=== PATIENT | female | born 1995 | race Caucasian/White ===

== ENCOUNTER 2025-02-18 15:00 | Inpatient (IN) | payer OTHER, SELFPAY ==
--- NOTE | ~2025-02-18 | XR_ITS ---
CLINICAL HISTORY: pain 4 view, chest and right ribs Comparison: None Findings: No fractures or dislocations. The visualized lungs are normal. Right lower cervical rib. IMPRESSION: No acute rib fractures. Right lower cervical rib. This document has been electronically signed by: Chela Ward MD on 02/19/2025 13:14:50
--- NOTE | ~2025-02-18 | XR_ITS ---
CLINICAL HISTORY: pain 4 view right shoulder Comparison: None Findings: Bones intact. No dislocations. No significant arthritic change. No erosions. No radiopaque foreign body. Right lower cervical rib. IMPRESSION: 1. No acute findings This document has been electronically signed by: Chela Ward MD on 02/19/2025 13:16:22
[2025-02-18 15:06] VITALS: BP 110/60; PULSE 70; O2SAT 98
[2025-02-18 15:07] VITALS: BP 115/73; PULSE 85; RESP 16; TEMP 36.6; O2SAT 100; BMI 25.8
--- NOTE | 2025-02-18 15:29 | ED_ITS ---
HPI - Psych General Chief Complaint: Psychiatric Symptoms Stated Complaint: attempt overdose Time Seen by Provider: 02/18/25 15:07 Source: patient and EMS Mode of arrival: EMS Limitations: no limitations History of Present Illness ED Provider: PATRICIA REID PA-C HPI Narrative: 29 year old female with pmhx significant for borderline personality disorder presents to the ED today via EMS from [facility] for evaluation of suicidal ideation. Endorses attempted OD on 15-20 trazodone pills 2 days ago. Endorses passive SI at present without plan. Patient states she has been non med compliant x3 days. Reports feeling unhinged . Had a falling out with her best friend recently along with relationship issues. Admits to controlled etoh consumption and marijuana use. Denies any other illicit substance use. Denies etoh abuse or etoh withdrawal. At present, endorses upset stomach. Reports 4 loose BMs today. She is unsure if this is attributable to her ingestion or her recent food intake. No other physical concerns. Related Data Home Medications ?Medication ?Instructions ?Recorded ?Confirmed hydroxyzine pamoate 25 mg capsule 25 mg PO TID PRN Anxiety 02/18/25 02/18/25 lamotrigine 100 mg tablet 100 mg PO BEDTIME 02/18/25 02/18/25 paroxetine HCl 25 mg 25 mg PO QAM 02/18/25 02/18/25 tablet,extended release 24 hr trazodone 50 mg tablet 50 - 100 mg PO BEDTIME PRN Insomnia 02/18/25 02/18/25 valacyclovir 1 gram tablet 1,000 mg PO BEDTIME 02/18/25 02/18/25 Allergies Allergy/AdvReac Type Severity Reaction Status Date / Time No Known Allergies Allergy Verified 02/18/25 15:33 Review of Systems 2 Review of Systems: Constitutional: No fever, chills, fatigue, night sweats, weight changes ENT/Mouth: No ear pain, hearing loss, nasal congestion, sinus pain, rhinorrhea, sore throat Eyes: No eye pain, swelling, redness, vision changes, discharge Cardio: No chest pain, palpitations, GARRETT, orthopnea, peripheral edema Pulm: No SOB, cough, sputum, wheezing, dyspnea, hemoptysis GI: No nausea, vomiting, hematemesis, abdominal pain, diarrhea, constipation, hematochezia, melena : No irregular bleeding, dysuria, frequency, urgency, hesitancy, hematuria, flank pain, urinary flow changes, urinary incontinence or retention MSK: No back pain, neck pain, joint pain, myalgias Skin: No lesions, rashes Neuro: No weakness, numbness, paresthesias, LOC, dizziness, headache Psych: No anxiety/panic, depression, HI, AH/VH, +SI All other systems reviewed and are negative. Yes all other systems are reviewed and are negative [facility] Past Medical History Attestation statement: The following information was validated with the patient. Source: old records reviewed and nursing notes reviewed Social History Social History Household Members: None Housing: Apartment Do you presently have visiting nurse or other home services: No Patient Tobacco Use Status: Current everyday Tobacco user Smoked in Last 30 Days: Yes e-Cigarette/Vaping Use: Currently Using Frequency of e-Cigarette/Vaping Use: daily all day Patient Interested in Nicotine Replacement: Yes Patient Given Instructions on How to Stop Smoking: Yes Date Education Initiated: 02/20/25 Use of substances other than those prescribed or required for medical reasons: Yes Substance Use Type: Marijuana Currently Displaying Signs/Symptoms of Drug Intoxication Withdrawal: No Have you been hit, kicked, punched, or otherwise hurt by someone within the past year? If so, by whom?: No Do you feel safe in your current relationship?: No Current Relationship Is there a partner from a previous relationship who is making you feel unsafe now?: No Are you made to feel afraid or neglected: No Spiritual Healthcare Practices: none Muslim Healthcare Practices: none Cultural Healthcare Practices: none Advance Directives: No Advance Directives Information Provided: No Do you have thoughts of harming others: None Do you have a plan to hurt others: No Plan Recently lost weight without trying: No Nutrition Risks: No Nutritional Risk Patient : No : No Poor oral hygiene: No Physical Exam 2 Vital Signs: Vital Signs: Last Vital Signs Temp 98.2 F 02/21/25 08:00 Pulse 66 02/21/25 08:00 Resp 18 02/21/25 08:00 BP 100/56 L 02/21/25 08:00 Pulse Ox 92 02/21/25 08:00 O2 Del Method Room Air 02/21/25 08:00 BMI result Body Mass Index 25.8 Vital signs stable, afebrile General: well appearing, in no acute distress. Skin: Warm, dry, intact. No rashes or lesions. Head: Normocephalic, atraumatic. EENT: Hearing is intact b/l. Conjunctiva clear. PERRLA. EOM intact. Moist mucous membranes.? Cardiac: Chest wall symmetric. RRR Lungs: Normal respiratory effort without accessory muscle use. CTA bilaterally Abdomen: Soft, non-tender, non-distended. No rebound tenderness or guarding. Positive BS x4. Back: No midline spinous or paraspinal tenderness. No step off deformity. Ext: Upper and lower extremities atraumatic, without tenderness, deformity, swelling or erythema Neuro: AOx3. Normal speech. CN 2-12 grossly intact. Ambulating with steady gait. Course Course Course Narrative: 1645 -- CBC without leukocytosis or left shift. Normocytic anemia, no priors to compare to. H&H above transfusion threshold. Chemistry without acute electrolyte abnormality requiring intervention. No RICKY. Normal liver function. Urine showing small blood, small leukocyte esterase, urine RBCs, WBCs, 6-10 squamous epithelial cells and trace urine bacteria. No urinary symptoms. Possible contamination. Will await urine culture for treatment. Urine negative. Urine toxicology positive for cocaine and marijuana, otherwise negative. ethanol, acetaminophen and salicylates undetectable. EKG showing normal sinus rhythm, rate 81 beats per minute, no acute ischemic changes or ST elevations > patient is medically cleared for care team at this time. Placed in physician observation. Reevaluation(s) Reevaluation #1: Time: 07:15 Date: 02/19/25 Provider: Lyudmila Ocampo, DO Patient in physician observation for psychiatric evaluation.? No acute events reported overnight after the events of yesterday. No current complaints. VS stable.? Patient is in bed search status S12. Will continue to monitor. c/o R side pain after restraint yesterday R shoulder and xray ordered of R ribs elbow wrist and hip no deformity or swelling, walking on hip she states this happened during escalation and restraint xrays no trauma Medications Administered Generic Name Dose Route Start Last Admin Trade Name Freq PRN Reason Stop Dose Admin Albuterol Sulfate 2 puff 02/21/25 09:14 02/21/25 11:11 Albuterol Sulfate 90 Mcg 8 Gm Inhaler INHALE 2 puff RQ4H PRN Administration sob Hydroxyzine HCl 25 mg 02/20/25 15:18 02/21/25 11:52 Hydroxyzine Hcl 25 Mg Tablet PO 25 mg Q6H PRN Administration mild anxiety Lamotrigine 100 mg 02/18/25 22:00 02/20/25 22:33 Lamotrigine 100 Mg Tablet PO 100 mg BEDTIME SHU Administration Nicotine Polacrilex 2 mg 02/18/25 20:59 02/20/25 15:24 Nicotine Polacrilex 2 Mg Gum BUCCAL 2 mg QID PRN Administration Nicotine Cravings Paroxetine HCl 20 mg 02/18/25 22:15 02/20/25 22:33 Paroxetine Hcl 20 Mg Tablet PO 20 mg BEDTIME SHU Administration Trazodone HCl 50 - 100 mg 02/18/25 21:58 02/20/25 22:35 Trazodone Hcl 50 Mg Tablet PO 100 mg BEDTIME PRN Administration Insomnia Valacyclovir HCl 1,000 mg 02/18/25 22:00 02/20/25 22:33 Valacyclovir Hcl 1,000 Mg Tablet PO 1,000 mg BEDTIME SHU Administration Discontinued Medications Generic Name Dose Route Start Last Admin Trade Name Freq PRN Reason Stop Dose Admin Benzocaine 1 lozenge 02/20/25 09:58 02/20/25 10:16 Throat Lozenge, Medicated Lozenge MUCOUS MEM 02/20/25 09:59 1 lozenge ONCE ONE Administration Cyclobenzaprine HCl 5 mg 02/19/25 01:19 02/19/25 01:34 Cyclobenzaprine Hcl 5 Mg Tablet PO 02/19/25 01:20 5 mg ONCE ONE Administration Guanfacine HCl 1 mg 02/21/25 14:21 02/21/25 14:59 Guanfacine Hcl Er 1 Mg Tab.Er.24h PO 02/21/25 14:22 1 mg ONCE ONE Administration Haloperidol Lactate 5 mg 02/18/25 19:41 02/18/25 19:42 Haloperidol Lactate 5 Mg/Ml Vial IM 02/18/25 19:42 5 mg ONCE ONE Administration Hydroxyzine HCl 25 mg 02/18/25 18:52 02/18/25 18:57 Hydroxyzine Hcl 25 Mg Tablet PO 02/18/25 18:53 25 mg ONCE ONE Administration Hydroxyzine HCl 25 mg 02/18/25 21:58 02/20/25 22:39 Hydroxyzine Hcl 25 Mg Tablet PO 25 mg TID PRN Administration Anxiety Ibuprofen 600 mg 02/18/25 21:59 02/19/25 00:48 Ibuprofen 600 Mg Tablet PO 02/18/25 22:00 600 mg ONCE ONE Administration Midazolam HCl 2 mg 02/18/25 19:42 02/18/25 19:42 Midazolam Hcl 2 Mg/2 Ml Vial IM 02/18/25 19:43 2 mg ONCE ONE Administration Medical Decision Making Medical Decision Making [facility] Narrative: 29 year old female with pmhx significant for borderline personality disorder presents to the ED today via EMS from [facility] for evaluation of suicidal ideation. vital signs stable. she is nontoxic appearing. Differential diagnosis includes anemia, electrolyte abnormality, mood disorder, anxiety, depression, SI, polysubstance abuse, acute ingestion Presentation not consistent with acute organic causes to include delirium, dementia or drug induced disorders (acute withdrawal; no evidence of toxidrome).? Given the H&P, I suspect this patient is suicidal and will require observation. Will consult care team to evaluate the patient. Will also obtain labs for medical clearance. Plan: labs, EKG, ASA/APAP levels, ETOH level, UDS, care team consultation, reassessment 02/19/25 0120 Alem Shaikh MD I was informed by the patient's nurse that the patient was complaining of left forearm arm and upper back pain. I evaluated the patient, patient has normal flexion and extension, pain to palpation over bicipital area and suprascapular area. At this time, imaging is not indicated Patient was given a dose of p.o. Flexeril Differential Diagnosis Differential Diagnoses: The differential diagnosis associated with the presentation includes as above. Admission/Observation Consideration of admission/observation: Escalation of care including admission/observation considered Lab Data [facility] Lab Attestation statement: I reviewed the patient's lab results. as above. 02/18/25 16:12 02/21/25 08:22 Labs: Lab Results 02/18/25 02/18/25 02/18/25 Range/Units 15:00 16:12 16:19 WBC 8.9 (4.8-10.8) X10*3/uL RBC 3.85 L (4.20-5.50) X10*6/uL Hgb 11.5 L (12.0-16.0) g/dl Hct 33.3 L (37.0-47.0) % MCV 86.5 (80.0-98.0) fL MCH 29.9 (27.0-33.0) pg MCHC 34.5 (31.0-35.0) g/dl RDW 13.2 (11.0-16.0) % Plt Count 198 (160-400) X10*3/uL MPV 13.0 H (9.4-12.3) fL Immature Gran % (Auto) 0.3 (0.0-0.4) % Neut % (Auto) 70.8 (45-73) % Lymph % (Auto) 19.5 L (20-40) % [place] % (Auto) 8.4 (2-11) % Eos % (Auto) 0.4 (0-4) % Baso % (Auto) 0.6 (0-2) % Lymph # (Auto) 1.7 (1.2-4.9) X10*3/uL [place] # (Auto) 0.8 (0.1-1.2) X10*3/uL Eos # (Auto) 0.0 (0.0-0.4) X10*3/uL Baso # (Auto) 0.1 (0.0-0.2) X10*3/uL Abs Immat Gran (auto) 0.03 (0.00-0.03) X10*3/uL Absolute Neuts (auto) 6.3 (2.0-8.3) x10*3/uL Absolute Nucleated RBC 0.000 (0.0-0.012) X10*3/uL Nucleated RBC % (auto) 0.0 (0.0-0.2) /100WBC Sodium 138 (135-145) mmol/L Potassium 3.7 (3.3-5.1) mmol/L Chloride 107 (96-108) mmol/L Carbon Dioxide 24 (22-29) mmol/L Anion Gap 11 L (12-20) BUN 11 (9-16) mg/dL Creatinine 0.61 (0.5-1.4) mg/dL Estim Creat Clear Calc 135.1 Estimated GFR > 60 Random Glucose 115 (60-115) mg/dL Calcium 9.1 (8.4-10.2) mg/dL Magnesium 1.7 (1.6-2.6) mg/dL Total Bilirubin 0.3 (0.0-1.0) mg/dL AST 15 (5-31) U/L ALT 12 (0-31) U/L Alkaline Phosphatase 52 (39-117) U/L Total Protein 6.8 (6.5-8.0) g/dL Albumin 4.0 (3.5-5.0) g/dL Lipase 22 (8-78) U/L Urine Color Yellow Urine Appearance Clear Urine pH 6.5 (5.0-9.0) Ur Specific [place] 1.010 (1.005-1.025) Urine Protein Negative (Neg-Trace) mg/dL Urine Glucose (UA) Negative (Negative) mg/dL Urine Ketones Negative (Negative) mg/dL Urine Blood Small (1+) H (Negative) Urine Nitrite Negative (Negative) Ur Leukocyte Esterase Small (1+) H (Negative) Urine RBC 6-10 H (0-2) /HPF Urine WBC 6-10 H (0-5) /HPF Ur Squamous Epith Cells 6-10 (0-2) /HPF Urine Bacteria Trace (None Seen) Hyaline Casts 0-2 (0-2) /LPF Urine Test NEGATIVE (NEGATIVE) Salicylates < 5.0 L (15-30) mg/dL Urine Opiates Screen Not Detected (Not Detect) Ur Buprenorphine Scrn Not Detected (Not Detect) ng/mL Ur Oxycodone Screen Not Detected (Not Detect) ng/mL Urine Methadone Screen Not Detected (Not Detect) ng/mL Urine Fentanyl Screen Not Detected (Not Detect) Acetaminophen < 3 (<30) mcg/mL Ur Barbiturates Screen Not Detected (Not Detect) Ur Phencyclidine Scrn Not Detected (Not Detect) Ur Amphetamines Screen Not Detected (Not Detect) U Benzodiazepines Scrn Not Detected (Not Detect) Urine Cocaine Screen POSITIVE H (Not Detect) U Marijuana (THC) Screen POSITIVE H (Not Detect) Ethyl Alcohol < 10 mg/dL Independent Interpretation I performed an independent interpretation of an: EKG Interpretation: EKG showing normal sinus rhythm with a rate of 81 beats per minute, no acute ischemic changes or ST elevations Radiology Impression Discussion of test interpretation with radiology: I have reviewed the radiologist's reading. Radiologist Impression: Date of Service: 02/18/25 Procedure(s): ECG 12 lead EKG Accession Number(s): [id number] cc: ~ Test Reason : R/O PROLONGED QT Blood Pressure : */* mmHG Vent. Rate : 81 BPM Atrial Rate : 81 BPM P-R Int : 170 ms QRS Dur : 82 ms QT Int : 356 ms P-R-T Axes : 71 53 18 degrees QTcB Int : 413 ms Normal sinus rhythm Normal ECG No previous ECGs available Referred By: Patricia Reid Electronically Signed By: Independent Historian Clinical information obtained from an independent historian. History obtained from or confirmed by: EMS Social Determinants Patient?s care significantly limited by Social Determinants of Health including: Other Social Determinant of Health Critical Care Time Critical Care Time Critical Care Time: No Discharge Plan Discharge Clinical Impression: Suicidal ideation, Overdose Patient Disposition: Admitted As Inpatient Interventions: Admission Worksheet (ED) Last Done: 02/20/25 17:07 Discharge Date/Time: 02/20/25 17:09
--- NOTE | 2025-02-18 15:37 | PC.NURSE ---
patient a&ox3, ambulatory with steady gait, pt wanting to order food as she states she has an eating disorder which she doesnt divulge what type of eating disorder, pt was also stating she cant have certain lactose- yogurt, milk. she requested to look up phone numbers to have pre-packaged food brought to her. provider came to mary pt, awaiting orders, plan of care ongoing
--- NOTE | 2025-02-18 15:40 | ECG_ITS ---
Test Reason : R/O PROLONGED QT Blood Pressure : */* mmHG Vent. Rate : 81 BPM Atrial Rate : 81 BPM P-R Int : 170 ms QRS Dur : 82 ms QT Int : 356 ms P-R-T Axes : 71 53 18 degrees QTcB Int : 413 ms Normal sinus rhythm Normal ECG No previous ECGs available Referred By: Patricia Reid Electronically Signed By: ANCA TRAVIS MD
[2025-02-18 16:22] LABS: MANUAL DIFF FLAG NO
[2025-02-18 16:23] LABS: Basophils Absolute Auto 0.1 X10*3/uL (0.0-0.2); Basophils Percent Auto 0.6 % (0-2); Eosinophils Percent Auto 0.4 % (0-4); Hematocrit 33.3 % (37.0-47.0); Hemoglobin 11.5 g/dl (12.0-16.0); Imm Gran Abs Auto 0.03 X10*3/uL (0.00-0.03); Imm Gran Pct Auto 0.3 % (0.0-0.4); Lymphocytes Absolute Auto 1.7 X10*3/uL (1.2-4.9); Lymphocytes Percent Auto 19.5 % (20-40); Mean Corpuscular HGB Conc 34.5 g/dl (31.0-35.0); Mean Corpuscular Hemoglobin 29.9 pg (27.0-33.0); Mean Corpuscular Volume 86.5 fL (80.0-98.0); Monocytes Absolute Auto 0.8 X10*3/uL (0.1-1.2); Monocytes Percent Auto 8.4 % (2-11); Neutrophils Absolute Auto 6.3 x10*3/uL (2.0-8.3); Neutrophils Percent Auto 70.8 % (45-73); Platelet Count 198 X10*3/uL (160-400); Red Blood Count 3.85 X10*6/uL (4.20-5.50); Red Cell Distribution Width 13.2 % (11.0-16.0); White Blood Count 8.9 X10*3/uL (4.8-10.8)
[2025-02-18 16:25] LABS: Appearance Urine Clear; Color Urine Yellow; Glucose Urine UA Negative (Negative); Leukocyte Esterase Urine Small (1+) (Negative); Nitrite Urine Negative (Negative); PH 6.5 (5.0-9.0); UMIC TRIGGER UACC YES; Urine Blood Small (1+) (Negative); Urine Ketones Negative (Negative); Urine Protein Negative (Neg-Trace)
[2025-02-18 16:25] LABS: UPreg QC Valid YES; Urine Pregnancy NEGATIVE (NEGATIVE)
[2025-02-18 16:27] LABS: Bacteria Urine Trace (None Seen); Hyaline Casts Urine 0-2 /LPF (0-2); UACC Culture Trigger YES
[2025-02-18 16:34] LABS: Amphetamine Screen Urine Not Detected (Not Detect); Barbiturates, Urine Not Detected (Not Detect); Benzodiazepines Screen Urine Not Detected (Not Detect); Buprenorphine Scr Not Detected (Not Detect); Cannabinoid Screen Urine POSITIVE (Not Detect); Cocaine Screen Urine POSITIVE (Not Detect); Fentanyl, urine Not Detected (Not Detect); Methadone Screen, Urine Not Detected (Not Detect); Opiate Screen Urine Not Detected (Not Detect); Oxycodone Screen Urine Not Detected (Not Detect); Phencyclidine Screen Urine Not Detected (Not Detect)
[2025-02-18 16:37] LABS: Acetaminophen LAB < 3 mcg/mL (<30); Salicylate < 5.0 mg/dL (15-30)
[2025-02-18 16:39] LABS: Alanine Aminotransferase 12 U/L (0-31); Alkaline Phosphatase 52 U/L (39-117); Anion Gap 11 (12-20); Aspartate Amino Transferase 15 U/L (5-31); Bilirubin Total 0.3 mg/dL (0.0-1.0); Blood Urea Nitrogen 11 mg/dL (9-16); Calcium 9.1 mg/dL (8.4-10.2); Carbon Dioxide 24 mmol/L (22-29); Chloride 107 mmol/L (96-108); Creatinine Clr Calc Pharmacy 135.1; Estimated Glomerular Filt Rate > 60; Ethanol < 10 mg/dL; Glucose Random 115 mg/dL (60-115); Lipase 22 U/L (8-78); Magnesium 1.7 mg/dL (1.6-2.6); Potassium 3.7 mmol/L (3.3-5.1); Sodium 138 mmol/L (135-145); Total Protein 6.8 g/dL (6.5-8.0)
[2025-02-18] MEDS: hydrOXYzine HCL 25 MG TABLET PO (18:57)
[2025-02-18] MEDS: Midazolam HCl 2 MG/2 ML VIAL IM (19:42)
[2025-02-18] MEDS: Haloperidol Lactate 5 MG/ML VIAL IM (19:42)
--- NOTE | 2025-02-18 20:15 | PC.NURSE ---
late en andre, on arrival to unit t/ w spoke to client seated in rear [facility] area, and reviewed her medications w t/w. about 20 minutes later client was informed she would be stayoing and client felt tricked, began yelling which was maybe 3-4 minutes, t/w asked provider for medications for client, with the hopes that client could sle fregualte in some way
--- NOTE | 2025-02-18 20:42 | MHC.CARE ---
Pt was initially assessed by [facility] crisis earlier today who deemed Pt was appropriate for IPLOC. Per CHD and prior to CHD assessment, Pt's ex boyfriend's father initiated a well-being check with Meir JAUREGUI at ex-boyfriend's home as Pt had reported an intentional overdose on prescribed medications 2 days prior. Upon additional collateral, Pt's childhood friend (Johanna) went to meet with Pt at at ex-boyfriend's house and encouraged her to present to [facility] crisis. Johanna expresses significant concern over Pt's ability to maintain her safety in the community at this time, as she is showing a pattern of behavior that she engages in prior to harming herself. Johanna reports that Pt has been engaging in SIB via cutting and posting videos on [employer] saying that she wants to kill herself. Pt was reseen by the CARE Team and continues to be IPLOC. On a section 12A for safety.
[2025-02-18] MEDS: Nicotine Polacrilex 2 MG GUM BUCCAL (21:10)
[2025-02-19] MEDS: Ibuprofen 600 MG TABLET PO (00:48)
[2025-02-19] MEDS: PARoxetine HCL 20 MG TABLET PO ×2 (00:48→20:56)
[2025-02-19] MEDS: lamoTRIgine 100 MG TABLET PO ×2 (00:48→20:56)
[2025-02-19] MEDS: valACYclovir HCL 1,000 MG TABLET 1000 MG PO ×2 (00:48→20:56)
--- NOTE | 2025-02-19 00:55 | PC.NURSE ---
patient had fallen asleep after ims given earlier this evening and analgesic just delivered now, patietns discomfort reported to provider
[2025-02-19 00:59] VITALS: BP 116/74; PULSE 84; RESP 16; TEMP 36.8; O2SAT 100
[2025-02-19] MEDS: Cyclobenzaprine HCl 5 MG TABLET PO (01:34)
[2025-02-19] MEDS: hydrOXYzine HCL 25 MG TABLET PO ×3 (01:37→20:56)
[2025-02-19] MEDS: traZODone HCL 50 MG TABLET PO ×2 (01:37→20:56)
--- NOTE | 2025-02-19 07:59 | PC.NURSE ---
Assumed care of patient at 0645, patient appears to be in no apparent distress this am, appears to be sleeping, respirations even and unlabored. Continue plan of care for IPLOC
[2025-02-19 12:00] VITALS: RESP 16
--- NOTE | 2025-02-19 12:13 | PC.NURSE ---
Pt speaking with CARE team clinician Zeina, pt reporting that she wants to go home, stating that she will not be kept on a section 12 . Pt very upset, unable to hear out clinician on reasoning why patient is an inpatient bedsearch. Pt now on phone speaking with friend
--- NOTE | 2025-02-19 13:11 | MHC.CARE ---
Pt asked to speak to a member of the CARE team regarding her disposition. T/W met with Pt in her room and she requested to discharge. T/W explained to Pt that she is on a Section 12a secondary to her intentional overdose of prescribed medications in a suicide attempt as well as texts sent to her ex boyfriend stating that she was going to kill herself. Pt was irritable and argumentative throughout the interaction attempting to bargain her way out of an inpatient psychiatric admission. Pt stated I can't stay here I have an eating disorder. I don't like hospital food. Pt also C/O right side pain secondary to the physical restraint she was placed in yesterday for attempting to elope from the BH pod and fighting with security. T/W stated to Pt that dietary could be contacted to accommodate her nutrition concerns and T/W would inform the ED provider that Pt is requesting to be assessed medically for her pain. Pt was tearful and said. I took 15 Trazadone and 5 Hydroxyzine. I've done it before in a very dismissive and passive way as she does not appear to have insight into the severity of her attempt and the consequences of unsafe decision making. Pt was informed she would remain on a Section 12a as an inpatient psychiatric bed search and would admit to a psychiatric unit for stabilization. Pt's friend Johanna called to ask if Pt's phone privileges could be revoked as she is calling me non stop saying she is going to kill me. T/W informed Johanna it is a human rights violation to stop Pt from using the phone and perhaps she could block the number and not answer the calls. Johanna continued to reiterate the unsafe behaviors of Pt such as overdosing in a suicide attempt numerous times, and frequent cocaine use. She stated Pt does not have an eating disorder and she just doesn't like hospital food.
[2025-02-19 14:52] VITALS: BP 97/60; PULSE 93; RESP 14; TEMP 36.8; O2SAT 98
--- NOTE | 2025-02-19 15:55 | PC.NURSE ---
patient resting in bed, respirations even and unlabored, no apparent distress noted. Pt is calm and cooperative, reports she feels like she has been misunderstood but understands why she is here at this time
[2025-02-19] MEDS: Nicotine Polacrilex 2 MG GUM BUCCAL (18:41)
--- NOTE | 2025-02-20 00:59 | PC.NURSE ---
patient expressed continuing displeasure w plan of inpatient admit, able to let wanrts and needs be known. appears in no distress, did request HS prn medications
[2025-02-20 06:06] VITALS: RESP 16
[2025-02-20 09:07] VITALS: BP 110/62; PULSE 82; RESP 16; TEMP 36.8; O2SAT 99
[2025-02-20] MEDS: Nicotine Polacrilex 2 MG GUM BUCCAL ×2 (09:44→15:24)
[2025-02-20] MEDS: Throat Lozenge, Medicated LOZENGE 1 LOZENGE MUCOUS MEM (10:16)
--- NOTE | 2025-02-20 11:43 | PHA.MEDREC ---
Addendum entered by Cedrick Clemente [facility] 02/20/25 12:27: MED REC CHECKED BY [facility] Original Note: Pharmacy Consult ? Medication Reconciliation Pharmacy has reviewed the medication reconciliation done by nursing. Claims match med rec.
[2025-02-20 14:16] VITALS: BP 100/57; PULSE 84; RESP 14; TEMP 37.2; O2SAT 99
[2025-02-20] MEDS: hydrOXYzine HCL 25 MG TABLET PO ×2 (16:39→22:39)
--- NOTE | 2025-02-20 16:46 | MHC.CARE ---
Per Rylie Dubois of [facility], no authorization or UR needed. Case ID [id number]
[2025-02-20 17:08] VITALS: BP 115/69; PULSE 83; RESP 16; TEMP 36.6; O2SAT 97
[2025-02-20 17:10] VITALS: BMI 25.7
--- NOTE | 2025-02-20 18:25 | PC.ADMIT ---
Addendum entered by Jumana Henriquez RN 02/20/25 18:59: When Ruth found out she was being sectioned, she became agitated, attempted to elope from the pod. She was chemically and mechanically restrained. Afterward she complained of right shoulder pain, imaging was done which was negative. Original Note: Ruth arrived from [facility] ED pod at 1653. She is alert and oriented x4. Ruth was cooperative with skin/safety check and skin check is unremarkable. She declined signing in so she remains on a 12b. Ruth appears stated age and denies any health problems. She reports that she came to the ED because crisis told me if I came to the psych pod in the ED it would be the quickest way to get into respite and [facility]. Per Ruth, her mom prefills her meds for the week and last week she stopped taking her lamictal, for about 5 days . I started acting impulsively, not myself, I cheated on my boyfriend and now he wants nothing to do with me. So I wanted to numb out and took a bunch of trazadone and a few hydroxyzines. I didn't want to kill myself, if I had I could have easily done it, I had all the meds already. Then 2 days later, I went out drinking with my friend and ended up texting my ex boyfriend, he wasn't home, that I had been drinking and wanted to talk with him so I was just going to stay at his place, I had a brumfield. I woke up to police standing around me doing a 'wellness check'. I don't know why. That wellness check would have made more sense 2 days before! But it was then and thats how I ended up in the ED. I was NOT supposed to go inpatient . This is her first inpatient stay. She has been at [facility], has a therapist, med provider and PCP. She vapes nicotine daily, uses marijuana for sleep my psychiatrist knows . She also was tox pos for cocaine, which she reported she uses occasionally. She works as an RN at [employer]. She historically has diagnosis' of MDD, anxiety, and BPD. Ruth denies urges to harm self or others, any visual or perceptual disturbances. She is currently on 15 minute safety checks.
[2025-02-20] MEDS: PARoxetine HCL 20 MG TABLET PO (22:33)
[2025-02-20] MEDS: lamoTRIgine 100 MG TABLET PO (22:33)
[2025-02-20] MEDS: valACYclovir HCL 1,000 MG TABLET 1000 MG PO (22:33)
[2025-02-20] MEDS: traZODone HCL 50 MG TABLET PO (22:35)
[2025-02-21 08:00] VITALS: BP 100/56; PULSE 66; RESP 18; TEMP 36.8; O2SAT 92
[2025-02-21 09:34] LABS: Estimated Average Glucose 94 mg/dL; Hemoglobin A1C 100.4861 umol/L; Hemoglobin A1c % 4.9 % (<6.0); Total Hemoglobin (HGBA1C) 3295.1578 umol/L
[2025-02-21 09:42] LABS: Alanine Aminotransferase 11 U/L (0-31); Albumin Level 4.2 g/dL (3.5-5.0); Alkaline Phosphatase 55 U/L (39-117); Anion Gap 10 (12-20); Aspartate Amino Transferase 16 U/L (5-31); Bilirubin Total 0.3 mg/dL (0.0-1.0); Blood Urea Nitrogen 11 mg/dL (9-16); Calcium 9.2 mg/dL (8.4-10.2); Carbon Dioxide 26 mmol/L (22-29); Chloride 107 mmol/L (96-108); Cholesterol 175 mg/dL (<200); Creatinine Clr Calc Pharmacy 114.2; Estimated Glomerular Filt Rate > 60; Glucose Random 113 mg/dL (60-115); HDL Cholesterol 53 mg/dL (>40); LDL Cholesterol Calculated 103 mg/dL (<100); Potassium 3.5 mmol/L (3.3-5.1); Sodium 139 mmol/L (135-145); Total Protein 7.4 g/dL (6.5-8.0); Triglycerides 98 mg/dL (<150)
[2025-02-21 10:01] LABS: TSH reflex Free T4 2.23 uIU/mL (0.32-4.0)
[2025-02-21] MEDS: Albuterol Sulfate 90 MCG 8 GM INHALER 2 PUFF INHALE (11:11)
[2025-02-21] MEDS: hydrOXYzine HCL 25 MG TABLET PO ×2 (11:52→21:02)
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
[2025-02-21] MEDS: guanFACINE HCl ER 1 MG TAB.ER.24H PO (14:59)
[2025-02-21 15:20] LABS: Appearance Urine Clear; Color Urine Yellow; Glucose Urine UA Negative (Negative); Leukocyte Esterase Urine Trace (Negative); Nitrite Urine Negative (Negative); Specific Gravity - Urine 1.015 (1.005-1.025); UMIC TRIGGER UACC YES; Urine Blood Moderate (2+) (Negative); Urine Ketones Negative (Negative); Urine Protein Negative (Neg-Trace)
[2025-02-21 15:38] LABS: Bacteria Urine None Seen (None Seen); Hyaline Casts Urine 0-2 /LPF (0-2); Squamous Epithelial Cell Urine 0-2 /HPF (0-2); WBC Urine 0-5 /HPF (0-5)
[2025-02-21] MEDS: Nicotine Polacrilex 2 MG GUM BUCCAL (19:16)
[2025-02-21 19:49] VITALS: BP 121/68; PULSE 96; RESP 16; TEMP 36.8; O2SAT 100
[2025-02-21] MEDS: PARoxetine HCL 20 MG TABLET PO (21:01)
[2025-02-21] MEDS: Lithium Carbonate ER 300 MG TABLET.ER PO (21:02)
[2025-02-21] MEDS: valACYclovir HCL 1,000 MG TABLET 1000 MG PO (21:02)
[2025-02-21] MEDS: lamoTRIgine 100 MG TABLET PO (21:02)
[2025-02-21] MEDS: traZODone HCL 50 MG TABLET PO (21:02)
[2025-02-22] MEDS: guanFACINE HCl ER 1 MG TAB.ER.24H PO (08:02)
[2025-02-22] MEDS: Albuterol Sulfate 90 MCG 8 GM INHALER 2 PUFF INHALE (08:02)
[2025-02-22 08:18] VITALS: BP 107/57; PULSE 82; RESP 18; TEMP 36.8; O2SAT 96
[2025-02-22] MEDS: Nicotine Polacrilex 2 MG GUM 4 MG BUCCAL (15:01)
--- NOTE | 2025-02-22 17:45 | HO.PSYCHPN ---
Subjective Subjective Date of Service: 02/22/25 Reason For Visit: decompensation S/I Interim History: Met with patient; discussed with team remains stable, good mood; feels good about dc and going to outpt appointments; in good behavioral/impulse control. And feels that lithium will be helpful and is glad to be on it. Discussed behaviors leading up to this admission and she is feels that she has learned a lot from this event. Patient feels safe, no SI at all. Her plan is to return to live with her mother for awhile, just to for support and also to have her mother returned to dispensing her medications. Mental Status Exam Mental Status Exam Narrative: Pt is alert and oriented; behavior is cooperative, friendly and calm; patient is not in distress; dressed in casual attire with groomed hair and adequate hygiene; mood is described as good and affect congruent; eye contact appropriate; Speech is normal rate, volume and prosody and not pressured; no psychomotor agitation/retardation present; thought process is organized and goal directed; Thought content is on tx; otherwise pertinent to relevant topics and without any delusional content, paranoid ideations or grandiosity; denies any SI/HI. Denies AVH and there is no evidence of perceptual disturbance. Patients insight and judgment are intact. Diagnostics Vital Signs (24Hr): Vital Signs - 24 hr 02/21/25 19:49 02/22/25 08:18 Temperature 98.2 F 98.2 F Pulse Rate 96 82 Respiratory Rate 16 18 Blood Pressure 121/68 107/57 L Pulse Oximetry 100 96 Oxygen Delivery Method Room Air Room Air BMI result Body Mass Index 25.7 Labs 02/18/25 16:12 02/23/25 07:58 Labs: Laboratory Results - last 48 hr 02/21/25 02/21/25 08:22 15:07 Sodium 139 Potassium 3.5 Chloride 107 Carbon Dioxide 26 Anion Gap 10 L BUN 11 Creatinine 0.72 Estim Creat Clear Calc 114.2 Estimated GFR > 60 Random Glucose 113 Estimat Average Glucose 94 Hemoglobin A1c % 4.9 Calcium 9.2 Total Bilirubin 0.3 AST 16 ALT 11 Alkaline Phosphatase 55 Total Protein 7.4 Albumin 4.2 Triglycerides 98 Cholesterol 175 LDL Cholesterol, Calc 103 H HDL Cholesterol 53 TSH 2.23 Urine Color Yellow Urine Appearance Clear Urine pH 6.0 Ur Specific [place] 1.015 Urine Protein Negative Urine Glucose (UA) Negative Urine Ketones Negative Urine Blood Moderate (2+) H Urine Nitrite Negative Ur Leukocyte Esterase Trace H Urine RBC 3-5 H Urine WBC 0-5 Ur Squamous Epith Cells 0-2 Urine Bacteria None Seen Hyaline Casts 0-2 Medications Medications Current Medications Acetaminophen (Acetaminophen 325 Mg Tablet) 650 mg PO Q6H PRN PRN Reason: Headache/Pain, Scale 1-10 Al Hydroxide/Mg Hydroxide (Magnesium Hydrox/Alum Hydrox 30 Ml Oral.Susp) 30 ml PO Q6H PRN PRN Reason: Heartburn/Nausea Albuterol Sulfate (Albuterol Sulfate 90 Mcg 8 Gm Inhaler) 2 puff INHALE RQ4H PRN PRN Reason: sob Last Admin: 02/22/25 08:02 Dose: 2 puff Guanfacine HCl (Guanfacine Hcl Er 1 Mg Tab.Er.24h) 1 mg PO DAILY [facility] Last Admin: 02/22/25 08:02 Dose: 1 mg Hydroxyzine HCl (Hydroxyzine Hcl 25 Mg Tablet) 25 mg PO Q6H PRN PRN Reason: mild anxiety Last Admin: 02/21/25 21:02 Dose: 25 mg Lamotrigine (Lamotrigine 100 Mg Tablet) 100 mg PO BEDTIME SHU Last Admin: 02/21/25 21:02 Dose: 100 mg [place] Carbonate ([place] Carbonate Er 300 Mg Tablet.Er) 300 mg PO BEDTIME SHU Last Admin: 02/21/25 21:02 Dose: 300 mg Magnesium Hydroxide (Milk Of Magnesia 30 Ml Oral.Susp) 30 ml PO DAILY PRN PRN Reason: Constipation Nicotine (Nicotine 21 Mg Patch.Td24) 21 mg TRANSDERMA DAILY PRN PRN Reason: smoking cessation Nicotine Polacrilex (Nicotine Polacrilex 2 Mg Gum) 2 mg BUCCAL QID PRN PRN Reason: Nicotine Cravings Last Admin: 02/21/25 19:16 Dose: 2 mg Nicotine Polacrilex (Nicotine Polacrilex 2 Mg Gum) 4 mg BUCCAL Q2H PRN PRN Reason: Nicotine Cravings Last Admin: 02/22/25 15:01 Dose: 4 mg Olanzapine (Olanzapine 5 Mg Tablet) 5 mg PO TID PRN PRN Reason: agitation Paroxetine HCl (Paroxetine Hcl 20 Mg Tablet) 20 mg PO BEDTIME SHU Last Admin: 02/21/25 21:01 Dose: 20 mg Trazodone HCl (Trazodone Hcl 50 Mg Tablet) 50 - 100 mg PO BEDTIME PRN PRN Reason: Insomnia Last Admin: 02/21/25 21:02 Dose: 100 mg Trazodone HCl (Trazodone Hcl 50 Mg Tablet) 50 mg PO BEDTIME MRX1 PRN PRN Reason: Insomnia Valacyclovir HCl (Valacyclovir Hcl 1,000 Mg Tablet) 1,000 mg PO BEDTIME SHU Last Admin: 02/21/25 21:02 Dose: 1,000 mg Allergies Allergies Allergy/AdvReac Type Severity Reaction Status Date / Time No Known Allergies Allergy Verified 02/18/25 15:33 Assessment & Plan Assessment & Plan (1) Bipolar disorder: Status: Acute Code(s): F31.9 - Bipolar disorder, unspecified (2) Borderline personality disorder: Status: Acute Code(s): F60.3 - Borderline personality disorder (3) PTSD (post-traumatic stress disorder): Status: Acute Code(s): F43.10 - Post-traumatic stress disorder, unspecified 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 Patient reports that since this past September, patient has had her mother Dol out her medications since she is forgetful; because of this she has remained consistent with medications and felt overall happy, started working a job... This December she started taking charge of her own medications however she fell into old habits and would intermittently forget to take meds.. Patient says about last week, I started to spiral, not make best decisions... She thinks perhaps she was having a manic episode during which time she cheated on boyfriend; she told him and he broke up with her, moving her things out of his apartment. This triggered patient's depression, anxiety and self-deprecating thoughts and crying spells. Patient kept texting him but he was not responding. She says that in effort to get a response, she started sending texts about ending her life, trying to get him to react; patient texted things like i dont want to be here anymore... And texted him that she was off her medications. Patient denies that she was suicidal at all and had no thoughts about actually hurting herself but was just texting these things to show him I am not okay with how things ended... That I was heart broken ... Patient did however decided to take 5-10 trazodones and 5 hydrozyzines which she reports was in effort to sleep; before she did so she called her mom that she was going to do this, saying I took a few trazodone...i'm hurting...i just want to sleep... She found her mom's response less than comforting, hung up and took the pills. She said her mom got there very quickly and made patient vomit. Patient acknowledges in hindsight that she said these things also to get her mom to react and come over to her house but again that this was in no way a suicide attempt. Patient reports she was feeling good the next day, woke up fine and went out with a friend and had a few drinks, did 1 line of coke....and then drove to ex-boyfriends house, texting him that she will crash at his house... He did not answer, was not home so she used her brumfield and went into the house and slept there. Patient says the next thing she knows the police arrived to do a wellness check. Her friend was notified who was also there convince patient to go get assessed. Patient said that at this point, her dysregulated mood had fully resolved and she was feeling much better with plans for the next several days, to go shopping, to get her nails done etc.. However she consented to go to crisis; she thought coming to the ED was part of getting herself into respite where she had been in the past and was very surprised and upset to find out she was getting admitted. Patient tried to elope but was stopped and medicated. Patient denies AVH; patient endorses history of manic type behaviors which include rapid speech, hyperactivity, increased libido, using drugs and alcohol when normally she would not, less need for sleep, racing thoughts and excessive spending money; these episodes last about 3 days. Hospital course/Formulation/clinical reasoning: Patient meets criteria for bipolar disorder; certainly ADHD, borderline personality disorder, PTSD and substance abuse have overlapping symptoms. Patient denies any SI at all. She says she is feeling better and knows that her behaviors were inappropriate. She reports a history of intermittently stopping Lamictal but has never gotten a rash; content writer reviewed risks/side effects of Lamictal including periodically discontinuing use which patient understands and wants to continue saying it has been very helpful; going forward she is going to have her mother restart Doling out the medications. Discussed medication management and patient agrees to lithium to address intermittent depressive episodes and prevent manic episodes. / remains stable, good mood; feels good about dc and going to outpt appointments; in good behavioral/impulse control. Discussed Intuniv for ADHD symptoms and patient wanted to try; patient found it helpful and wants to continue with. And feels that lithium will be helpful and is glad to be on it. Discussed behaviors leading up to this admission and she is feels that she has learned a lot from this event. Patient feels safe, no SI at all. Her plan is to return to live with her mother for awhile, just to for support and also to have her mother returned to dispensing her medications. Impression: Patient has returned to baseline. She remains in good behavioral and impulse control and feels safe and back to her regular self. She is future oriented, looking forward to getting back to work and continuing treatment as an outpatient. She remains without any SI. Patient will have her mother staying with her for awhile as a supportive measure. Patient is on a 12 B which is coming due. She is not in imminent risk for harm to self or others and appropriate to return to the community for treatment. Her request for discharge honored. Plan: Twelve B Q 15 minute checks Start lithium 300 mg q.h.s. Continue Lamictal 100 mg; started in the ED; patient has history of starting and stopping without negative effect Start Intuniv; content writer discussed risks/side effects and she agrees that this could help with ADHD Regarding [place], Risks, side-effects and benefits reviewed with pt, including, but not limited to, damage to kidneys and thyroid; pt was educated to stay hydrated, to watch for symptoms of lithium toxicity (also discussed, including but not limited to nausea, tremor, confusion) and the need to stay away from OTC NSAIDs (specifics reviewed) aside from Tylenol. Patient educated on: diagnosis, medication risk/benefits and therapeutic strategies Informed Consent: understands Reason for continued inpatient stay Substantial Risk for: stable for discharge Time Spent With Patient Time: Total time managing care of this patient today ____ minutes.
[2025-02-22 20:00] VITALS: BP 99/58; PULSE 82; RESP 16; TEMP 37.1; O2SAT 98
[2025-02-22] MEDS: Lithium Carbonate ER 300 MG TABLET.ER PO (20:51)
[2025-02-22] MEDS: valACYclovir HCL 1,000 MG TABLET 1000 MG PO (20:51)
[2025-02-22] MEDS: PARoxetine HCL 20 MG TABLET PO (20:51)
[2025-02-22] MEDS: traZODone HCL 50 MG TABLET PO (20:51)
[2025-02-22] MEDS: hydrOXYzine HCL 25 MG TABLET PO (20:51)
[2025-02-22] MEDS: lamoTRIgine 100 MG TABLET PO (20:51)
[2025-02-23 08:00] VITALS: BP 107/64; PULSE 89; RESP 16; TEMP 37.1; O2SAT 98
[2025-02-23 08:42] LABS: Lithium 0.23 mmol/L (0.60-1.20)
[2025-02-23 08:47] LABS: Anion Gap 9 (12-20); Blood Urea Nitrogen 10 mg/dL (9-16); Calcium 9.8 mg/dL (8.4-10.2); Carbon Dioxide 27 mmol/L (22-29); Chloride 105 mmol/L (96-108); Creatinine Clr Calc Pharmacy 115.8; Estimated Glomerular Filt Rate > 60; Glucose Random 81 mg/dL (60-115); Potassium 3.9 mmol/L (3.3-5.1); Sodium 137 mmol/L (135-145)
[2025-02-23] MEDS: Nicotine Polacrilex 2 MG GUM BUCCAL (08:59)
[2025-02-23] MEDS: guanFACINE HCl ER 1 MG TAB.ER.24H PO (08:59)
[2025-02-23 09:03] LABS: TSH reflex Free T4 1.93 uIU/mL (0.32-4.0)
--- NOTE | 2025-02-23 10:10 | PM.PSYDC ---
DS: Providers Provider Date of Service: 02/23/25 Date of admission: 02/20/25 15:18 Date of discharge: 02/23/25 Primary care physician: Lesly Lynch NP Attending physician on admission: Jean Bonner Attending physician on discharge: Jean Bonner DS: Diagnosis Discharge Diagnosis (1) Borderline personality disorder: Status: Acute (2) Bipolar disorder: Status: Acute (3) PTSD (post-traumatic stress disorder): Status: Acute DS: Medications Discharge Medications Home Medications: Home Medications ?Medication ?Instructions ?Recorded ?Confirmed hydroxyzine pamoate 25 mg capsule 25 mg PO TID PRN Anxiety 02/18/25 02/18/25 lamotrigine 100 mg tablet 100 mg PO BEDTIME 02/18/25 02/18/25 paroxetine HCl 25 mg 25 mg PO QAM 02/18/25 02/18/25 tablet,extended release 24 hr trazodone 50 mg tablet 50 - 100 mg PO BEDTIME PRN Insomnia 02/18/25 02/18/25 valacyclovir 1 gram tablet 1,000 mg PO BEDTIME 02/18/25 02/18/25 Previous Rx's ?Medication ?Instructions ?Recorded albuterol sulfate 90 mcg/actuation 2 puff inhalation RQ4H PRN sob 30 02/23/25 aerosol inhaler (Ventolin HFA) days #6.7 grams guanfacine 1 mg tablet,extended 1 mg PO DAILY 30 days #30 tabs 02/23/25 release 24 hr lithium carbonate 300 mg 300 mg PO BEDTIME 30 days #30 tabs 02/23/25 tablet,extended release nicotine (polacrilex) 2 mg gum 2 mg buccal Q2H PRN Nicotine 02/23/25 Cravings 30 days #100 ea Mental Status Exam Mental Status Exam Narrative: Pt is alert and oriented; behavior is cooperative, friendly and calm; patient is not in distress; dressed in casual attire with groomed hair and adequate hygiene; mood is described as good and affect congruent; eye contact appropriate; Speech is normal rate, volume and prosody and not pressured; no psychomotor agitation/retardation present; thought process is organized and goal directed; Thought content is on tx; otherwise pertinent to relevant topics and without any delusional content, paranoid ideations or grandiosity; denies any SI/HI. Denies AVH and there is no evidence of perceptual disturbance. Patients insight and judgment are intact. Data Data Completed and Pending Completed studies during hospitalization [Text1]: 02/18/25 02/18/25 02/18/25 15:00 16:12 16:19 WBC 8.9 RBC 3.85 L Hgb 11.5 L Hct 33.3 L MCV 86.5 MCH 29.9 MCHC 34.5 RDW 13.2 Plt Count 198 MPV 13.0 H Immature Gran % (Auto) 0.3 Neut % (Auto) 70.8 Lymph % (Auto) 19.5 L [place] % (Auto) 8.4 Eos % (Auto) 0.4 Baso % (Auto) 0.6 Lymph # (Auto) 1.7 [place] # (Auto) 0.8 Eos # (Auto) 0.0 Baso # (Auto) 0.1 Abs Immat Gran (auto) 0.03 Absolute Neuts (auto) 6.3 Absolute Nucleated RBC 0.000 Nucleated RBC % (auto) 0.0 Sodium 138 Potassium 3.7 Chloride 107 Carbon Dioxide 24 Anion Gap 11 L BUN 11 Creatinine 0.61 Estim Creat Clear Calc 135.1 Estimated GFR > 60 Random Glucose 115 Estimat Average Glucose Hemoglobin A1c % Calcium 9.1 Magnesium 1.7 Total Bilirubin 0.3 AST 15 ALT 12 Alkaline Phosphatase 52 Total Protein 6.8 Albumin 4.0 Triglycerides Cholesterol LDL Cholesterol, Calc HDL Cholesterol Lipase 22 TSH Urine Color Yellow Urine Appearance Clear Urine pH 6.5 Ur Specific [place] 1.010 Urine Protein Negative Urine Glucose (UA) Negative Urine Ketones Negative Urine Blood Small (1+) H Urine Nitrite Negative Ur Leukocyte Esterase Small (1+) H Urine RBC 6-10 H Urine WBC 6-10 H Ur Squamous Epith Cells 6-10 Urine Bacteria Trace Hyaline Casts 0-2 Urine Test NEGATIVE Salicylates < 5.0 L Urine Opiates Screen Not Detected Ur Buprenorphine Scrn Not Detected Ur Oxycodone Screen Not Detected Urine Methadone Screen Not Detected Urine Fentanyl Screen Not Detected Acetaminophen < 3 Ur Barbiturates Screen Not Detected Ur Phencyclidine Scrn Not Detected Ur Amphetamines Screen Not Detected U Benzodiazepines Scrn Not Detected [place] Urine Cocaine Screen POSITIVE H U Marijuana (THC) Screen POSITIVE H Ethyl Alcohol < 10 02/21/25 02/21/25 02/23/25 08:22 15:07 07:58 WBC RBC Hgb Hct MCV MCH MCHC RDW Plt Count MPV Immature Gran % (Auto) Neut % (Auto) Lymph % (Auto) [place] % (Auto) Eos % (Auto) Baso % (Auto) Lymph # (Auto) [place] # (Auto) Eos # (Auto) Baso # (Auto) Abs Immat Gran (auto) Absolute Neuts (auto) Absolute Nucleated RBC Nucleated RBC % (auto) Sodium 139 137 Potassium 3.5 3.9 Chloride 107 105 Carbon Dioxide 26 27 Anion Gap 10 L 9 L BUN 11 10 Creatinine 0.72 0.71 Estim Creat Clear Calc 114.2 115.8 Estimated GFR > 60 > 60 Random Glucose 113 81 Estimat Average Glucose 94 Hemoglobin A1c % 4.9 Calcium 9.2 9.8 D Magnesium Total Bilirubin 0.3 AST 16 ALT 11 Alkaline Phosphatase 55 Total Protein 7.4 Albumin 4.2 Triglycerides 98 Cholesterol 175 LDL Cholesterol, Calc 103 H HDL Cholesterol 53 Lipase TSH 2.23 1.93 Urine Color Yellow Urine Appearance Clear Urine pH 6.0 Ur Specific [place] 1.015 Urine Protein Negative Urine Glucose (UA) Negative Urine Ketones Negative Urine Blood Moderate (2+) H Urine Nitrite Negative Ur Leukocyte Esterase Trace H Urine RBC 3-5 H Urine WBC 0-5 Ur Squamous Epith Cells 0-2 Urine Bacteria None Seen Hyaline Casts 0-2 Urine Test Salicylates Urine Opiates Screen Ur Buprenorphine Scrn Ur Oxycodone Screen Urine Methadone Screen Urine Fentanyl Screen Acetaminophen Ur Barbiturates Screen Ur Phencyclidine Scrn Ur Amphetamines Screen U Benzodiazepines Scrn [place] 0.23 L Urine Cocaine Screen U Marijuana (THC) Screen Ethyl Alcohol 02/18/25 Unknown Urine clean catch - Clean Catch Midstream Urine Culture - Final DS: Summary Hospital Course Hospital Course: 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 Patient reports that since this past September, patient has had her mother Dol out her medications since she is forgetful; because of this she has remained consistent with medications and felt overall happy, started working a job... This December she started taking charge of her own medications however she fell into old habits and would intermittently forget to take meds.. Patient says about last week, I started to spiral, not make best decisions... She thinks perhaps she was having a manic episode during which time she cheated on boyfriend; she told him and he broke up with her, moving her things out of his apartment. This triggered patient's depression, anxiety and self-deprecating thoughts and crying spells. Patient kept texting him but he was not responding. She says that in effort to get a response, she started sending texts about ending her life, trying to get him to react; patient texted things like i dont want to be here anymore... And texted him that she was off her medications. Patient denies that she was suicidal at all and had no thoughts about actually hurting herself but was just texting these things to show him I am not okay with how things ended... That I was heart broken ... Patient did however decided to take 5-10 trazodones and 5 hydrozyzines which she reports was in effort to sleep; before she did so she called her mom that she was going to do this, saying I took a few trazodone...i'm hurting...i just want to sleep... She found her mom's response less than comforting, hung up and took the pills. She said her mom got there very quickly and made patient vomit. Patient acknowledges in hindsight that she said these things also to get her mom to react and come over to her house but again that this was in no way a suicide attempt. Patient reports she was feeling good the next day, woke up fine and went out with a friend and had a few drinks, did 1 line of coke....and then drove to ex-boyfriends house, texting him that she will crash at his house... He did not answer, was not home so she used her [place] and went into the house and slept there. Patient says the next thing she knows the police arrived to do a wellness check. Her friend was notified who was also there convince patient to go get assessed. Patient said that at this point, her dysregulated mood had fully resolved and she was feeling much better with plans for the next several days, to go shopping, to get her nails done etc.. However she consented to go to crisis; she thought coming to the ED was part of getting herself into respite where she had been in the past and was very surprised and upset to find out she was getting admitted. Patient tried to elope but was stopped and medicated. Patient denies AVH; patient endorses history of manic type behaviors which include rapid speech, hyperactivity, increased libido, using drugs and alcohol when normally she would not, less need for sleep, racing thoughts and excessive spending money; these episodes last about 3 days. Hospital course/Formulation/clinical reasoning: On admission, patient was calm, cooperative and polite; patient was in good behavioral and impulse control and organized in speech and behavior. She reports that her dysregulation of the previous week is fully resolved and she has no SI at all. She explained that her episode in the emergency room was out of panic when she realized she was being admitted, thinking she was only being going to respite (patient is herself a nurse and was very anxious about being on inpatient unit); patient does not think she needs inpatient admission but is amenable to treatment while she is here for monitoring. Patient forthcoming in discussions. She meets criteria for bipolar disorder; certainly ADHD, borderline personality disorder, PTSD and substance abuse have overlapping symptoms. Patient denies any SI at all. She says she is feeling better and knows that her behaviors were inappropriate. 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 Discussed medication management and patient agrees to lithium to address intermittent depressive episodes and prevent manic episodes. 6/4 remains stable, good mood; feels good about dc and going to outpt appointments; in good behavioral/impulse control. Discussed Intuniv for ADHD symptoms and patient wanted to try; patient found it helpful and wants to continue with. And feels that lithium will be helpful and is glad to be on it. Discussed behaviors leading up to this admission and she is feels that she has learned a lot from this event. Patient feels safe, no SI at all. Her plan is to return to live with her mother for awhile, just to for support and also to have her mother returned to dispensing her medications. Impression: Patient has returned to baseline. She remains in good behavioral and impulse control and feels safe and back to her regular self. She is future oriented, looking forward to getting back to work and continuing treatment as an outpatient. She remains without any SI. Patient will have her mother staying with her for awhile as a supportive measure. Patient is on a 12 B which is coming due. She is not in imminent risk for harm to self or others and appropriate to return to the community for treatment. Her request for discharge honored. Medications: Started lithium 300 mg q.h.s. Started Intuniv Continued Lamictal Regarding [place], Risks, side-effects and benefits reviewed with pt, including, but not limited to, damage to kidneys and thyroid; pt was educated to stay hydrated, to watch for symptoms of lithium toxicity (also discussed, including but not limited to nausea, tremor, confusion) and the need to stay away from OTC NSAIDs (specifics reviewed) aside from Tylenol. Time spent discussing smoking cessation with patient: 3 to 10 minutes Status at Discharge Functional status at discharge: independent ambulation Overall status at discharge: patient is back to baseline Time Spent with Patient Time attestation: Total time managing care of this patient today __40__ minutes. Time spent: Greater than 30 minutes Specific discharge activities: Met with patient; discussed with team; charting; prescriptions Discharge Plan Discharge Anticipated Discharge Date/Time: 02/23/25 11:30 Patient Disposition: Home, Self-Care Discharge Diagnosis: Bipolar II disorder, most recent episode manic, in full remission Referrals: [facility] Jazmin Evans [Other] - 04/03/25 12:00 pm (They are aware that you will need an earlier appt and are working to secure an earlier appt for you. Please follow up with them. ) [facility] rica Bellamy [Other] - 02/28/25 2:00 pm Lesly Lynch NP [Primary Care Provider] - 1 Week Discharge Medications: New albuterol sulfate [Ventolin HFA] 90 mcg/actuation Hfa Aerosol Inhaler 2 puff inhalation RQ4H PRN (Reason: sob) 30 Days Qty: 6.7 0RF nicotine (polacrilex) 2 mg Gum 2 mg buccal Q2H PRN (Reason: Nicotine Cravings) 30 Days Qty: 100 0RF guanfacine 1 mg Tablet Extended Release 24 Hr 1 mg PO DAILY 30 Days Qty: 30 0RF lithium carbonate 300 mg Tablet Extended Release 300 mg PO BEDTIME 30 Days Qty: 30 0RF Continued trazodone 50 mg tablet 50 - 100 mg PO BEDTIME PRN (Reason: Insomnia) valacyclovir 1 gram tablet 1,000 mg PO BEDTIME lamotrigine 100 mg tablet 100 mg PO BEDTIME hydroxyzine pamoate 25 mg capsule 25 mg PO TID PRN (Reason: Anxiety) paroxetine HCl 25 mg tablet extended release 24 hr 25 mg PO QAM Discharge Orders: Discharge Order (Routine); Ordered 02/23/25 Ordered By: Jean Bonner Diet: Regular diet Activity on Discharge: As tolerated Stand Alone Forms: Patient Portal Discharge page, Community Support Print Language: Turkmen Care Plan Goals: Maintain mood and safe behaviors Take medications as prescribed Continue to pursue sobriety Practice coping skills Continue with outpatient providers and reach out to them as needed Health Concerns: Mood stability and behaviors Sobriety Plan of Treatment: Follow up with your PCP, psychiatric provider and other outpatient providers regarding above concerns Take medications as prescribed Assessment: Risk assessment at time of discharge:? Patient was interviewed prior to discharge and found to be fully oriented and without any SI or HI. Patient has improved insight and judgment and wants to continue treatment. Patient is not in imminent risk of harm to self or others and has a safety plan that includes presenting to the closest ER or calling 911 if feeling unsafe.? Patient has been observed closely by nursing and unit staff throughout admission; patient has not engaged in any behaviors that suggest dangerousness to self or others and has demonstrated appropriate behaviors and impulse control Discharge Date/Time: 02/23/25 11:16
== END 2025-02-23 11:16 | disposition home or self-care (01) | DRG 885 ==
LOC: HO.ED 02-20 10:37 → HO.PM5 02-20 15:25
PROVIDERS: Physician Assistant Medical; Admitting Provider Psychiatry & Neurology Psychiatry; Emergency Provider Emergency Medicine; PCP Nurse Practitioner Gerontology; Visit Provider Psychiatry & Neurology Psychiatry
DX: F31.81 Bipolar II disorder (principal); R45.851 Suicidal ideations; F60.3 Borderline personality disorder; F17.210 Nicotine dependence, cigarettes, uncomplicated; Z71.6 Tobacco abuse counseling; Z79.899 Other long term (current) drug therapy
CPT/HCPCS: 36415; 71101; 73030; 80048; 80053; 80061; 80143; 80178; 80179; 80307; 81001; 81025; 83036; 83690; 83735; 84443; 85025; 87086; 93005; 99285; J1630; J2250; S9485

== ENCOUNTER → 2025-02-18 15:40 | Outpatient (BNV) | payer SELFPAY | PROVIDERS: Emergency Provider Emergency Medicine; PCP Nurse Practitioner Gerontology; Visit Provider Internal Medicine Cardiovascular Disease | DX: Z13.6 Encounter for screening for cardiovascular disorders (principal) | CPT/HCPCS: 93010 ==

== ENCOUNTER → 2025-02-19 12:21 | Outpatient (BNV) | payer SELFPAY | PROVIDERS: Emergency Provider Emergency Medicine; PCP Nurse Practitioner Gerontology; Visit Provider Radiology Diagnostic Radiology | DX: R07.89 Other chest pain (principal); M25.511 Pain in right shoulder | CPT/HCPCS: 71101; 73030 ==

== ENCOUNTER → 2025-02-20 15:18 | Outpatient (BNV) | payer OTHER, SELFPAY | PROVIDERS: Admitting Provider Psychiatry & Neurology Psychiatry; Emergency Provider Emergency Medicine; PCP Nurse Practitioner Gerontology; Visit Provider Psychiatry & Neurology Psychiatry | DX: F31.4 Bipolar disorder, current episode depressed, severe, without psychotic features (principal); F60.3 Borderline personality disorder; F43.11 Post-traumatic stress disorder, acute | CPT/HCPCS: 90792 ==